=== PATIENT | female | born 1945 | race Two or more races ===

== ENCOUNTER 2023-08-12 12:43 | Emergency (ER) | payer OTHER ==
[~2023-08-12] VITALS: Ht 162.6 cm; Wt 76.2 kg
[2023-08-12] MEDS ORDERED: KAPSPARGO SPRIN50 MG (12:47)
[2023-08-12] MEDS ORDERED: TOPROL XL25 MG (12:47)
[2023-08-12] MEDS ORDERED: ONDANSETRON HCL 2 MG/ML VIAL IV ONE (13:15)
[2023-08-12] MEDS ORDERED: KETOROLAC TROMETHAMINE 30 MG VIAL IV ONE (13:15)
[2023-08-12] MEDS ORDERED: FAMOTIDINE/PF 20 MG/2 ML VIAL IV ONE (13:15)
[2023-08-12] MEDS ORDERED: 0.9 % SODIUM CHLORIDE 500 ML IV SCH (13:15)
[2023-08-12] MEDS ORDERED: KETOROLAC TROMETHAMINE 30 MG VIAL ONE (13:44)
[2023-08-12] MEDS ORDERED: FAMOTIDINE/PF 20 MG/2 ML VIAL ONE (13:44)
[2023-08-12] MEDS ORDERED: ONDANSETRON HCL 2 MG/ML VIAL ONE (13:44)
[2023-08-12 14:18] LABS: HEMATOCRIT 35.8 % (36.0-45.00); HEMOGLOBIN 12.3 g/dL (12.0-15.00); MEAN CELL VOLUME 92.1 fL (80.00-100.00); MEAN CORPUSCULAR HEMOGLOBIN 31.6 pg (27.00-32.0); MEAN CORPUSCULAR HGB CONC 34.3 g/dl (32.0-36.0); PLATELET COUNT 187 K/uL (150-450); RED BLOOD COUNT 3.89 M/uL (4.00-6.00); RED CELL DISTRIBUTION WIDTH 13.7 % (11.5-14.5)
[2023-08-12 14:32] LABS: INR 0.99; PARTIAL THROMBOPLASTIN TIME 33.1 SECONDS (22.0-34.0); PROTHROMBIN TIME 10.4 SECONDS (9.0-11.5)
[2023-08-12 14:33] LABS: CALCIUM 9.8 mg/dL (8.5-10.1); CREATININE SERUM 0.75 mg/dL (0.55-1.02); GFR 74.73; POTASSIUM 3.2 mEq/L (3.5-5.1)
[2023-08-12 17:02] LABS: URINE APPEARANCE Clear; URINE BILIRRUBIN Negative (NEGATIVE); URINE BLOOD Negative; URINE COLOR Yellow; URINE GLUCOSE Negative (NEGATIVE); URINE LEUKOCYTE Negative; URINE NITRATE Negative; URINE PROTEIN Negative (NEGATIVE); URINE UROBILINOGEN 0.2 E.U./dl
[2023-08-12 17:06] LABS: URINE EPITHELIAL CELLS 2.1 uL (0.0-38.8); URINE RBC 12.6 uL (0.0-20.8); URINE WBC 13.5 uL (0.0-23.2)
== END 2023-08-12 19:03 | disposition home or self-care (01) ==
LOC: ER 12:44
PROVIDERS: General Practice
DX: K57.32 Diverticulitis of large intestine without perforation or abscess without bleeding (principal); R10.32 Left lower quadrant pain; I10 Essential (primary) hypertension
CPT/HCPCS: 36415; 74177; 96365; 96366; 99284; J1885; J2405; J7042; Q9965

== ENCOUNTER 2024-01-29 14:23 | Emergency (ER) | payer OTHER ==
[~2024-01-29] VITALS: Ht 160 cm; Wt 73.9 kg
[~2024-01-29 14:23] MED LIST: KAPSPARGO SPRIN50 MG; TOPROL XL25 MG
[2024-01-29] MEDS ORDERED: LIPITOR40 M1 PO (15:33)
[2024-01-29] MEDS ORDERED: DICYCLOMINE HCL 20 MG TABLET PO ONE (16:15)
[2024-01-29 16:58] LABS: HEMATOCRIT 38.5 % (36.0-45.00); HEMOGLOBIN 12.8 g/dL (12.0-15.00); MEAN CORPUSCULAR HEMOGLOBIN 30.2 pg (27.00-32.0); MEAN CORPUSCULAR HGB CONC 33.2 g/dl (32.0-36.0); PLATELET COUNT 189 K/uL (150-450); RED BLOOD COUNT 4.24 M/uL (4.00-6.00)
[2024-01-29 17:30] LABS: ALBUMIN 3.8 gm/dL (3.4-5.0); BILIRUBIN TOTAL 0.85 mg/dL (0.3-1.2); CALCIUM 10.3 mg/dL (8.5-10.1); CREATININE SERUM 0.82 mg/dL (0.55-1.02); GFR 67.42; GLOBULINA 3.7 G/DL (2.4-3.5); POTASSIUM 4.28 mEq/L (3.5-5.1); TOTAL PROTEIN 7.5 gm/dL (6.4-8.2)
[2024-01-29 17:32] LABS: URINE APPEARANCE Clear; URINE BILIRRUBIN Negative (NEGATIVE); URINE BLOOD Negative; URINE COLOR Yellow; URINE GLUCOSE Negative (NEGATIVE); URINE KETONE Trace (NEGATIVE); URINE LEUKOCYTE Trace; URINE NITRATE Negative; URINE PROTEIN Negative (NEGATIVE); URINE UROBILINOGEN 0.2 E.U./dl
[2024-01-29 17:33] LABS: URINE BACTERIA 18.3 uL (0.0-1933); URINE RBC 4.7 uL (0.0-20.8)
[2024-01-29 17:35] LABS: URINE EPITHELIAL CELLS 0.7 uL (0.0-38.8)
[2024-01-29] MEDS ORDERED: MACROBID 100 M100 MG PO (22:21)
== END 2024-01-30 00:37 | disposition home or self-care (01) ==
LOC: ER 14:26
PROVIDERS: General Practice
DX: N39.0 Urinary tract infection, site not specified (principal); R10.32 Left lower quadrant pain; R10.9 Unspecified abdominal pain; I10 Essential (primary) hypertension
CPT/HCPCS: 36415; 74177; Q9965